=== PATIENT | male | born 1960 | race Caucasian/White ===

== ENCOUNTER 2016-12-02 18:35 | Emergency (ER) | payer BC ==
[2016-12-02 18:50] VITALS: BP 138/91; PULSE 89; TEMP 97.8; BMI 34.4
--- NOTE | 2016-12-02 19:08 | PDOC ---
History of Present Illness - General Chief Complaint: Laceration Stated Complaint: PCP SENT/LACERATION Time Seen by Provider: 12/02/16 19:07 History Source: Patient Exam Limitations: No Limitations - History of Present Illness Initial Comments: CHIEF COMPLAINT: 56 y/o afebrile male with PMH HTN, HLD sent here from [facility] for laceration to finger. HISTORY OF PRESENT ILLNESS: The patient sustained a laceration to his 3rd left digit with electric hedge clippers this afternoon. He was seen at [facility] where an xray revealed a comminuted tuft fracture. They sent him here for further evaluation. The patient is not on a blood thinner. His tetanus is not UTD. He denies decreased ROM but does have some tingling in the tip of the affected finger. Vital signs on arrival are within normal limits. REVIEW OF SYSTEMS: GENERAL/CONSTITUTIONAL: No fever/chills. No weakness. No weight change. MUSCULOSKELETAL: +pain and swelling to left 3rd finger. No neck or back pain. SKIN: +laceration to left 3rd finger NEUROLOGIC: No headache, vertigo, loss of consciousness, or loss of sensation. PHYSICAL EXAM: VITAL_SIGNS: within normal limits GENERAL_APPEARANCE: alert, cooperative, no obvious discomfort. MENTAL_STATUS: speech clear, oriented X 3, responds appropriately to questions. NEURO: motor intact and sensory intact in injured extremity. EXTREMITIES: good pulse in injured extremity. 2 macerated lacerations along with a small flap to distal 3rd phalanx. Full flexion and extension of PIP and DIP joint of 3rd phalanx. SKIN: warm, dry, good color. Past History - Past Medical History Allergies/Adverse Reactions: Allergies Allergy/AdvReac Type Severity Reaction Status Date / Time No Known Allergies Allergy Verified 12/02/16 18:50 Home Medications: Ambulatory Orders Ezetimibe [Zetia -] 10 mg PO DAILY #0 tablet 11/11/11 Nifedipine [Nifedipine ER] 60 mg PO DAILY #0 tab.er.24 11/11/11 Hxs-Mua-Pjezlg/Choli/Bioflavon [Cvs Ear Care Formula Tablet] 1 each PO ASDIR Ubiquinol [Active-Q] 200 mg PO ASDIR 06/09/13 Amox-Tr/K Cl [Augmentin - 875Mg Tablet] 1 tab PO BID #20 tablet 12/02/16 Anemia: No Asthma: No Cancer: No Cardiac Disorders: No CVA: No COPD: No CHF: No Dementia: No Diabetes: No GI Disorders: No Disorders: No HTN: Yes Hypercholesterolemia: Yes Kidney Stones: Yes Liver Disease: No Seizures: No Thyroid Disease: No - Surgical History Abdominal Surgery: No Appendectomy: No Cardiac Surgery: No Cholecystectomy: No Lung Surgery: No Neurologic Surgery: Yes (CERVICAL DISECTOMY) - Psycho/Social/Smoking Cessation Hx Anxiety: No Suicidal Ideation: No Smoking Status: No Smoking History: Never smoked Have you smoked in the past 12 months: No Number of Cigarettes Smoked Daily: 0 Hx Alcohol Use: Yes (SOCIAL) Drug/Substance Use Hx: No Substance Use Type: None Hx Substance Use Treatment: No *Physical Exam - Vital Signs Last Vital Signs Temp Pulse Resp BP Pulse Ox 97.8 F 89 20 138/91 12/02/16 18:46 12/02/16 18:46 12/02/16 18:46 12/02/16 18:46 Procedures - Laceration/Wound Repair Distal Finger 3rd digit Wound Length: 2.6 to 5.0 cm Wound Explored: clean Wound's Depth, Shape: into muscle, irregular, flap Irrigated w/ Saline: Yes Betadine Prep: Yes Anesthesia: 1% Lidocaine Amount of Anesthetic (ccs): 5 (DIgital block performed) Wound Repaired With: Sutures Suture Size/Type: 5:0 Number of Sutures: 8 Sterile Dressing Applied: Yes Medical Decision Making - Medical Decision Making A/P: 56 y/o male with laceration to distal 3rd finger with comminuted tuft fracture. Plan is as follows: 1. Tetanus 2. Ortho consult Spoke with Dr. Mc who suggests good irrigation of the area, lac repair, one dose of abx in the ER, discharge with abx and f/u with him in his office either Wednesday or Wednesday. 3. Lac repair 4. PO augmentin The lac repair was performed by WHITLEY Fernandez. She irrigated the wound copiously with normal saline after it soaked in hydrogen peroxide for 20 minutes. She repaired the lac without difficulty. The patient tolerated the procedure well. The wound was cleaned with a non adherent dressing and then wrapped. The patient was instructed to keep the wound dry for 24 hours then clean and covered. he was instructed to f/u in Dr. Mc's office on either Wednesday or Wednesday and return to the ER in 7-10 days for suture removal. The patient verbalizes understanding of all instructions, has no further questions and is awaiting discharge. *DC/Admit/Observation/Transfer Diagnosis at time of Disposition: Open fracture of tuft of distal phalanx of finger Qualifiers: Encounter type: initial encounter Qualified Code(s): S62.639B - Displaced fracture of distal phalanx of unspecified finger, initial encounter for open fracture Finger laceration Qualifiers: Encounter type: initial encounter Finger: middle finger Damage to nail status: with damage Foreign body presence: without foreign body Laterality: left Qualified Code(s): S61.313A - Laceration without foreign body of left middle finger with damage to nail, initial encounter - Discharge Dispostion Disposition: HOME Condition at time of disposition: Improved - Prescriptions Prescriptions: Amox-Tr/K Cl [Augmentin - 875Mg Tablet] 1 tab PO BID #20 tablet - Referrals Referrals: Jae Miranda MD [Primary Care Provider] - Saul Mc MD [Staff Physician] - Call tomorrow (Schedule an appointment for either Wednesday or Wednesday) - Patient Instructions Printed Discharge Instructions: DI for Laceration Repair, DI for Finger Fracture Additional Instructions: Discharge Instructions: -Keep wound clean and covered for 24 hours -An antibiotic has been sent to your pharmacy; please take as directed -You were give a tetanus shot in the ER and are now up to date for 10 years -Please call Dr. Mc tomorrow and schedule a follow up appointment for either Wednesday or Wednesday -Return to the ER in 7-10 days to have sutures removed
[2016-12-02] MEDS ORDERED: AMOX TR/POT CLAV 875MG/125MG TABLETS (FP) PO ONE ×2 (19:42→21:58)
[2016-12-02] MEDS ORDERED: TETANUS AND DIPHTHERIA TOXOID 0.5 ML DISP.SYRIN IM ONE (19:42)
[2016-12-02] MEDS ORDERED: AMOX TR/POT CLAV 875MG/125MG TABLETS (FP) ONE ×2 (19:49→21:52)
== END 2016-12-02 22:02 | disposition home or self-care (01) ==
LOC: JERFT 18:35
PROC: 3E0234Z Introduction of Serum, Toxoid and Vaccine into Muscle, Percutaneous Approach (ICD-10-PCS; principal; 2016-12-02)
PROC: 0JQK0ZZ Repair Left Hand Subcutaneous Tissue and Fascia, Open Approach (ICD-10-PCS; 2016-12-02)
DX: S62.633B Displaced fracture of distal phalanx of left middle finger, initial encounter for open fracture (principal); S61.213A Laceration without foreign body of left middle finger without damage to nail, initial encounter; W29.3XXA Contact with powered garden and outdoor hand tools and machinery, initial encounter; Y93.89 Activity, other specified; Y92.89 Other specified places as the place of occurrence of the external cause
CPT/HCPCS: 99281-25

== ENCOUNTER 2019-07-17 08:51 | Day surgery (SDC) | payer BC ==
[2019-07-14 14:38] VITALS: BMI 33.3
[2019-07-17 10:39] VITALS: TEMP 98.2
[2019-07-17 11:50] VITALS: BP 110/61; PULSE 58
--- NOTE | 2019-07-19 11:13 | PATH ---
Surgical Pathology Report Patient Name: HEIDI WASHBURN [facility]. Rec. #: [id number] /Age/Gender: 1960 (Age: 58) / M Account: [id number] Location: U-ENDOSCOPY Taken: 07/17/2019 Received: 07/17/2019 Reported: 07/19/2019 Physicians: Nader Harrison M.D. Specimen(s) Received TRANSVERSE COLON Clinical History History of adenomatous polyps Postoperative diagnosis: Transverse colon polyp, diverticulosis Final Diagnosis TRANSVERSE COLON, POLYP, POLYPECTOMY: TUBULAR ADENOMA. Electronically Signed Kim Holman M.D. Gross Description Received in formalin, labeled "transverse colon polyp" is a yates, irregular portion of soft tissue measuring 0.7 cm. in greatest dimension. The specimen is submitted in toto in one cassette. KEON/07/18/2019 adam/07/18/2019
== END 2019-07-17 11:50 | disposition home or self-care (01) ==
LOC: JASU-ENDO 08:51
PROVIDERS: ATTEND Internal Medicine Gastroenterology
PROC: 0DBL8ZX Excision of Transverse Colon, Via Natural or Artificial Opening Endoscopic, Diagnostic (ICD-10-PCS; principal; 2019-07-17 09:45)
DX: Z12.11 Encounter for screening for malignant neoplasm of colon (principal); Z86.010 Personal history of colon polyps; K64.8 Other hemorrhoids; K57.30 Diverticulosis of large intestine without perforation or abscess without bleeding; D12.3 Benign neoplasm of transverse colon
CPT/HCPCS: 88305-TC

== ENCOUNTER → 2021-04-11 | Day surgery (SDC) | payer BC ==
[2021-04-10 08:43] VITALS: BMI 31.1
[~2021-04-11] MED LIST: BUPIVACAINE HCL/PF 0.5% (5 MG/ML) 30 ML VIAL IJ ONE; BUPIVACAINE HCL/PF 0.5% (5MG/ML) 10 ML VIAL ONE; LIDOCAINE 1%/EPI 1:100000 (20 ML MULTI DOSE VIAL) IJ ONE; PROPOFOL 20 ML ONE
[2021-04-11 10:13] VITALS: TEMP 97.7
[2021-04-11 10:37] VITALS: BP 122/68; PULSE 60
== END | disposition home or self-care (01) ==
LOC: JASU-SURG 04:39
PROVIDERS: ATTEND Orthopaedic Surgery
PROC: 0SBD4ZZ Excision of Left Knee Joint, Percutaneous Endoscopic Approach (ICD-10-PCS; principal; 2021-04-11 08:00)
DX: S83.242A Other tear of medial meniscus, current injury, left knee, initial encounter (principal); S83.272A Complex tear of lateral meniscus, current injury, left knee, initial encounter; X58.XXXA Exposure to other specified factors, initial encounter; Y93.9 Activity, unspecified; Y92.9 Unspecified place or not applicable; Y99.9 Unspecified external cause status
CPT/HCPCS: 94760